=== PATIENT | male | born 1960 ===

== ENCOUNTER 2018-03-23 08:10 | Inpatient (IN) | payer BC ==
[2018-03-23] MEDS ORDERED: Sodium Chloride 0.9% 1,000 ML IV STA (08:50)
[2018-03-23] MEDS ORDERED: Morphine 4 MG/ML VIAL ONE (08:58)
[2018-03-23] MEDS ORDERED: Sodium Chloride 0.9% 1,000 ML ONE (08:59)
[2018-03-23 09:05] LABS: BASO # 0.1 K/uL (0.0-0.2); BASO % 0.7 % (0.0-2.0); EOS # 0.1 K/uL (0.0-0.7); EOS % 1.4 % (0.0-4.0); HEMOGLOBIN 14.3 g/dL (12.0-18.0); LYMPH # 1.6 K/uL (1.0-4.3); LYMPH % 18.6 % (20.0-40.0); MEAN CELL VOLUME 87.6 fL (80.0-94.0); MEAN CORPUSCULAR HEMOGLOBIN 29.8 pg (27.0-31.0); MEAN PLATELET VOLUME 8.3 fL (7.2-11.7); MONO # 0.4 K/uL (0.0-0.8); MONO % 5.2 % (0.0-10.0); NEUT # 6.4 K/uL (1.8-7.0); NEUT % 74.1 % (50.0-75.0); NRBC % 0.1 % (0.0-2.0); RBC 4.81 Mil/uL (4.40-5.90); RED CELL DISTRIBUTION WIDTH 13.7 % (11.5-14.5); WHITE BLOOD COUNT 8.6 K/uL (4.8-10.8)
[2018-03-23 09:13] LABS: INR 1.1; PROTHROMBIN TIME 11.6 SECONDS (9.7-12.2)
--- NOTE | 2018-03-23 09:30 | RAD ---
PROCEDURE: CHEST RADIOGRAPH, 1 VIEW HISTORY: SOB COMPARISON: None available. FINDINGS: LUNGS: Clear. PLEURA: No pneumothorax or pleural fluid seen. CARDIOVASCULAR: Normal. OSSEOUS STRUCTURES: No significant abnormalities. VISUALIZED UPPER ABDOMEN: Normal. OTHER FINDINGS: None. IMPRESSION: No active disease.
[2018-03-23 10:01] LABS: ALB/GLOB RATIO 1.1 (1.0-2.1); ALBUMIN 3.9 g/dL (3.5-5.0); ALT/SGPT 56 U/L (21-72); AMYLASE 73 U/L (30-110); AST/SGOT 38 U/L (17-59); BLOOD UREA NITROGEN 21 mg/dL (9-20); CALCIUM 8.6 mg/dl (8.6-10.4); GFR AFRICAN-AMERICAN > 60; GFR NON-AFRICAN AMERICAN > 60; LIPASE 109 U/L (23-300)
[2018-03-23 10:12] LABS: CK-MB 1.33 ng/mL (0.0-3.38)
[2018-03-23 11:15] LABS: URINE BILIRUBIN NEGATIVE (NEGATIVE); URINE BLOOD NEGATIVE (NEGATIVE); URINE CLARITY Clear (Clear); URINE COLOR Straw (YELLOW); URINE GLUCOSE (UA) 1+ mg/dL (Normal); URINE LEUKOCYTE ESTERASE NEG Leu/uL (Negative); URINE PROTEIN NEGATIVE (NEGATIVE); URINE UROBILINOGEN NORMAL mg/dL (0.2-1.0)
--- NOTE | 2018-03-23 11:54 | C.PDOC ---
History Of Present Illness 57-year-old male, presents to the emergency department with complaints of epigastric abdominal pain, that is associated with nausea, and non-bloody/non- bilious vomiting, that started at 05:00 this morning. Patient denies fevers, chills, shortness of breath or any other associated symptoms. No other complaints at this time. Chief Complaint (Nursing): Abdominal Pain History Per: Patient History/Exam Limitations: no limitations Past Medical History Reviewed: Historical Data, Nursing Documentation, Vital Signs Vital Signs: Last Vital Signs Temp 98.9 F 03/23/18 16:00 Pulse 71 03/23/18 16:00 Resp 20 03/23/18 16:00 BP 144/69 03/23/18 16:00 Pulse Ox 95 03/23/18 16:00 Family History: States: No Known Family Hx - Social History Hx Alcohol Use: No Hx Substance Use: No - Immunization History Hx Tetanus Toxoid Vaccination: No Hx Influenza Vaccination: No Hx Pneumococcal Vaccination: No Review Of Systems Constitutional: Negative for: Fever Cardiovascular: Negative for: Chest Pain Respiratory: Negative for: Shortness of Breath Gastrointestinal: Positive for: Nausea, Vomiting, Abdominal Pain Musculoskeletal: Negative for: Back Pain Neurological: Negative for: Weakness, Headache, Dizziness Physical Exam - Physical Exam Appears: Non-toxic, No Acute Distress, Other (uncomfortable, diaphoretic) Skin: Warm, Dry, Pale, No Rash Head: Atraumatic, Normacephalic Eye(s): bilateral: Normal Inspection Nose: Normal Oral Mucosa: Moist Lips: Normal Appearing Neck: Normal ROM Chest: Symmetrical Cardiovascular: Rhythm Regular, No Murmur Respiratory: Normal Breath Sounds, No Accessory Muscle Use Gastrointestinal/Abdominal: Soft, Tenderness ( epigastric), No Guarding, No Rebound Extremity: Normal ROM, No Deformity, No Swelling Neurological/Psych: Oriented x3, Normal Speech, Normal Cognition ED Course And Treatment - Laboratory Results Result Diagrams: 03/23/18 08:58 03/23/18 09:40 ECG Rhythm: Sinus Bradycardia, ST/T Changes Rate From EC O2 Sat by Pulse Oximetry: 100 (RA) Pulse Ox Interpretation: Normal - CT Scan/US RUQ US Other Rad Studies (CT/US): Read By Radiologist, Radiology Report Reviewed CT/US Interpretation: Accession No. : [id number]. Patient Name / ID : NENA KRAFT T / [id number]. Exam Date : 03/23/2018 11:34:51 ( Approved ). Study Comment : Sex / Age : M / 57Y. Creator : Ochoa Buckley MD. Dictator : Ochoa Buckley MD. Conveyor Line Battery Charger : Network Contractor : Ochoa Buckley MD. Approver2 : Report Date : 03/23/2018 12:02:11. My Comment : . HISTORY: upper abdominal pain. COMPARISON: None. TECHNIQUE: Sonographic evaluation of the right upper quadrant of the abdomen. FINDINGS: LIVER: Measures 18.9 cm in length. Diffusely increased echogenicity of the liver parenchyma. No mass. No biliary dilatation. Smooth contour. GALLBLADDER: Cholelithiasis. Possible adenomyomatosis, with echogenic foci demonstrated ring down artifact. No mural thickening. No pericholecystic fluid. Negative sonographic Lewis's sign. COMMON BILE DUCT: Measures 4 mm. No stones. No dilatation. PANCREAS: Unremarkable as visualized. No mass. No ductal dilatation. RIGHT KIDNEY: Measures 12.9 cm in length. Normal echogenicity. No calculus, mass, or hydronephrosis. AORTA: No aneurysmal dilatation. IVC: Unremarkable. OTHER FINDINGS: None . IMPRESSION: Cholelithiasis. Probable adenomyomatosis of the gallbladder. Fatty infiltration of the liver. Mild hepatomegaly. No biliary obstruction. No evidence of cholecystitis. Progress Note: Case was d/w who accepted patient to his service and requested for surgery consult. Case was d/w who requested to call surgery resident to evaluate this patient. Medical Decision Making Medical Decision Making: Plan: * Bloodwork * Chest X-Ray * Morphine, Protonix, IVFs, Zofran, Toradol * Reassess and Disposition Disposition - Disposition Disposition: HOSPITALIZED Disposition Time: 14:06 Condition: FAIR - Clinical Impression Clinical Impression: Epigastric pain - Scribe Statement The provider has reviewed the documentation as recorded by the Scribe (Christian Medrano) All medical record entries made by the Scribe were at my direction and personally dictated by me. I have reviewed the chart and agree that the record accurately reflects my personal performance of the history, physical exam, medical decision making, and the department course for this patient. I have also personally directed, reviewed, and agree with the discharge instructions and disposition. Decision To Admit - Pt Status Changed To: Hospital Disposition Of: Observation - . Bed Request Type: Regular Admitting Physician: Edwin Santana Patient Diagnosis: Epigastric pain
--- NOTE | 2018-03-23 12:03 | US ---
HISTORY: upper abdominal pain COMPARISON: None. TECHNIQUE: Sonographic evaluation of the right upper quadrant of the abdomen. FINDINGS: LIVER: Measures 18.9 cm in length. Diffusely increased echogenicity of the liver parenchyma. No mass. No biliary dilatation. Smooth contour. GALLBLADDER: Cholelithiasis. Possible adenomyomatosis, with echogenic foci demonstrated ring down artifact. No mural thickening. No pericholecystic fluid. Negative sonographic Lewis's sign. COMMON BILE DUCT: Measures 4 mm. No stones. No dilatation. PANCREAS: Unremarkable as visualized. No mass. No ductal dilatation. RIGHT KIDNEY: Measures 12.9 cm in length. Normal echogenicity. No calculus, mass, or hydronephrosis. AORTA: No aneurysmal dilatation. IVC: Unremarkable. OTHER FINDINGS: None . IMPRESSION: Cholelithiasis. Probable adenomyomatosis of the gallbladder. Fatty infiltration of the liver. Mild hepatomegaly. No biliary obstruction. No evidence of cholecystitis.
--- NOTE | 2018-03-23 14:49 | CP.PCM.CON ---
History of Present Illness - History of Present Illness History of Present Illness: Surgery- Dr. Ferrell 57M no significant pmhx presents to [facility] ED with sharp mid-epigastric pain radiating to the RUQ that started this morning after eating a bowl of pork fried rice. Patient never had pain like this in the past. Pain was relieved after coming to the ER and getting morphine. Pain associated with nausea, and non-bloody bilious vomiting x 2. Denies diarrhea. No associated recent sick contacts or foreign travel. Currently Denies: fevers, chills, chest pain, shortness of breath, diarrhea, changes in bowel or urinary habits, numbness/tingling in extremities PMH: cataracts PSH: eye/cataract surgery ALL: NKDA SocialHx: denies tobacco, etoh, recreational drug use FamilyHx: Non-contributory 14point review of systems negative except for those stated above Review of Systems - Review of Systems All systems: reviewed and no additional remarkable complaints except - Constitutional Constitutional: As Per HPI Past Patient History - Past Social History Smoking Status: Never Smoked - PSYCHIATRIC Hx Substance Use: No - SURGICAL HISTORY Hx Surgeries: No - ANESTHESIA Hx Anesthesia: No Meds Allergies/Adverse Reactions: Allergies Allergy/AdvReac Type Severity Reaction Status Date / Time No Known Allergies Allergy Verified 03/23/18 08:17 Physical Exam - Constitutional Appears: Non-toxic, No Acute Distress - Head Exam Head Exam: ATRAUMATIC - Eye Exam Eye Exam: EOMI - ENT Exam ENT Exam: Mucous Membranes Moist - Respiratory Exam Respiratory Exam: NORMAL BREATHING PATTERN. absent: Accessory Muscle Use, Respiratory Distress - Cardiovascular Exam Cardiovascular Exam: +S1, +S2. absent: Bradycardia, Tachycardia - GI/Abdominal Exam GI & Abdominal Exam: Soft. absent: Distended, Firm, Guarding, Hernia, Tenderness Additional comments: Rectus diasthesis noted during exam - Extremities Exam Extremities exam: Positive for: normal inspection. Negative for: calf tenderness - Back Exam Back exam: absent: CVA tenderness (L), CVA tenderness (R) - Neurological Exam Neurological exam: Alert, Oriented x3 - Psychiatric Exam Psychiatric exam: Normal Affect - Skin Skin Exam: Intact, Warm Results - Vital Signs Recent Vital Signs: Last Vital Signs Temp 98.3 F 03/23/18 12:59 Pulse 59 L 03/23/18 12:59 Resp 18 03/23/18 12:59 BP 141/60 05/15/18 12:59 Pulse Ox 100 03/23/18 14:07 - Labs Result Diagrams: 03/23/18 08:58 03/23/18 09:40 Labs: Laboratory Results - last 24 hr 03/23/18 03/23/18 03/23/18 08:58 08:58 09:40 WBC 8.6 RBC 4.81 Hgb 14.3 Hct 42.1 MCV 87.6 MCH 29.8 MCHC 34.0 RDW 13.7 Plt Count 331 MPV 8.3 Neut % (Auto) 74.1 Lymph % (Auto) 18.6 L [place] % (Auto) 5.2 Eos % (Auto) 1.4 Baso % (Auto) 0.7 Neut # (Auto) 6.4 Lymph # (Auto) 1.6 [place] # (Auto) 0.4 Eos # (Auto) 0.1 Baso # (Auto) 0.1 PT 11.6 INR 1.1 APTT 34 Sodium 143 Potassium 4.1 Chloride 107 Carbon Dioxide 25 Anion Gap 15 BUN 21 H Creatinine 0.9 Est GFR ( Amer) > 60 Est GFR (Non-Af Amer) > 60 Random Glucose 145 H Calcium 8.6 Total Bilirubin 1.0 AST 38 ALT 56 Alkaline Phosphatase 112 Total Creatine Kinase 248 H CK-MB (Mass) 1.33 Troponin I < 0.0120 Total Protein 7.3 Albumin 3.9 Globulin 3.5 Albumin/Globulin Ratio 1.1 Amylase 73 Lipase 109 Urine Color Urine Clarity Urine pH Ur Specific [place] Urine Protein Urine Glucose (UA) Urine Ketones Urine Blood Urine Nitrate Urine Bilirubin Urine Urobilinogen Ur Leukocyte Esterase Urine WBC (Auto) Urine RBC (Auto) 03/23/18 11:08 WBC RBC Hgb Hct MCV MCH MCHC RDW Plt Count MPV Neut % (Auto) Lymph % (Auto) [place] % (Auto) Eos % (Auto) Baso % (Auto) Neut # (Auto) Lymph # (Auto) [place] # (Auto) Eos # (Auto) Baso # (Auto) PT INR APTT Sodium Potassium Chloride Carbon Dioxide Anion Gap BUN Creatinine Est GFR ( Amer) Est GFR (Non-Af Amer) Random Glucose Calcium Total Bilirubin AST ALT Alkaline Phosphatase Total Creatine Kinase CK-MB (Mass) Troponin I Total Protein Albumin Globulin Albumin/Globulin Ratio Amylase Lipase Urine Color Straw Urine Clarity Clear Urine pH 8.0 Ur Specific [place] 1.015 Urine Protein Negative Urine Glucose (UA) 1+ H Urine Ketones Negative Urine Blood Negative Urine Nitrate Negative Urine Bilirubin Negative Urine Urobilinogen Normal Ur Leukocyte Esterase Neg Urine WBC (Auto) 1 Urine RBC (Auto) < 1 Assessment & Plan - Assessment and Plan (Free Text) Assessment: 57M w/ RUQ abdominal pain, symptomatic cholelithiasis Plan: - NPO after midnight - analgesia and pain control PRN - IVF - Plan for OR tomorrow for cholecystectomy - will d[facility]
[2018-03-23] MEDS ORDERED: Morphine 4 MG/ML VIAL IVP PRN (18:01)
--- NOTE | 2018-03-23 19:10 | CP.PCM.HP ---
Past Patient History - Past Social History Smoking Status: Never Smoked - PSYCHIATRIC Hx Substance Use: No - SURGICAL HISTORY Hx Surgeries: No - ANESTHESIA Hx Anesthesia: No Meds Allergies/Adverse Reactions: Allergies Allergy/AdvReac Type Severity Reaction Status Date / Time No Known Allergies Allergy Verified 03/23/18 08:17 Physical Exam - Constitutional Appears: Well - Head Exam Head Exam: ATRAUMATIC, NORMAL INSPECTION, NORMOCEPHALIC - Eye Exam Eye Exam: EOMI, Normal appearance, PERRL Pupil Exam: NORMAL ACCOMODATION, PERRL - ENT Exam ENT Exam: Mucous Membranes Moist, Normal Exam - Neck Exam Neck exam: Positive for: Normal Inspection - Respiratory Exam Respiratory Exam: Decreased Breath Sounds - Cardiovascular Exam Cardiovascular Exam: REGULAR RHYTHM, +S1, +S2 - GI/Abdominal Exam GI & Abdominal Exam: Diminished Bowel Sounds, Soft - Rectal Exam Rectal Exam: Deferred Results - Vital Signs Recent Vital Signs: Last Vital Signs Temp 98.9 F 03/23/18 16:00 Pulse 71 03/23/18 16:00 Resp 20 03/23/18 16:00 BP 144/69 03/23/18 16:00 Pulse Ox 100 03/23/18 18:31 - Labs Result Diagrams: 03/23/18 08:58 03/23/18 09:40 Labs: Laboratory Results - last 24 hr 03/23/18 03/23/18 03/23/18 08:58 08:58 09:40 WBC 8.6 RBC 4.81 Hgb 14.3 Hct 42.1 MCV 87.6 MCH 29.8 MCHC 34.0 RDW 13.7 Plt Count 331 MPV 8.3 Neut % (Auto) 74.1 Lymph % (Auto) 18.6 L [place] % (Auto) 5.2 Eos % (Auto) 1.4 Baso % (Auto) 0.7 Neut # (Auto) 6.4 Lymph # (Auto) 1.6 [place] # (Auto) 0.4 Eos # (Auto) 0.1 Baso # (Auto) 0.1 PT 11.6 INR 1.1 APTT 34 Sodium 143 Potassium 4.1 Chloride 107 Carbon Dioxide 25 Anion Gap 15 BUN 21 H Creatinine 0.9 Est GFR ( Amer) > 60 Est GFR (Non-Af Amer) > 60 Random Glucose 145 H Calcium 8.6 Total Bilirubin 1.0 AST 38 ALT 56 Alkaline Phosphatase 112 Total Creatine Kinase 248 H CK-MB (Mass) 1.33 Troponin I < 0.0120 Total Protein 7.3 Albumin 3.9 Globulin 3.5 Albumin/Globulin Ratio 1.1 Amylase 73 Lipase 109 Urine Color Urine Clarity Urine pH Ur Specific [place] Urine Protein Urine Glucose (UA) Urine Ketones Urine Blood Urine Nitrate Urine Bilirubin Urine Urobilinogen Ur Leukocyte Esterase Urine WBC (Auto) Urine RBC (Auto) 03/23/18 11:08 WBC RBC Hgb Hct MCV MCH MCHC RDW Plt Count MPV Neut % (Auto) Lymph % (Auto) [place] % (Auto) Eos % (Auto) Baso % (Auto) Neut # (Auto) Lymph # (Auto) [place] # (Auto) Eos # (Auto) Baso # (Auto) PT INR APTT Sodium Potassium Chloride Carbon Dioxide Anion Gap BUN Creatinine Est GFR ( Amer) Est GFR (Non-Af Amer) Random Glucose Calcium Total Bilirubin AST ALT Alkaline Phosphatase Total Creatine Kinase CK-MB (Mass) Troponin I Total Protein Albumin Globulin Albumin/Globulin Ratio Amylase Lipase Urine Color Straw Urine Clarity Clear Urine pH 8.0 Ur Specific [place] 1.015 Urine Protein Negative Urine Glucose (UA) 1+ H Urine Ketones Negative Urine Blood Negative Urine Nitrate Negative Urine Bilirubin Negative Urine Urobilinogen Normal Ur Leukocyte Esterase Neg Urine WBC (Auto) 1 Urine RBC (Auto) < 1
[2018-03-24] MEDS: Lactated Ringer's 1,000 ML IV SCH ×3 (00:05→20:05)
[2018-03-24 08:19] LABS: BASO % 0.2 % (0.0-2.0); EOS % 0.2 % (0.0-4.0); HEMOGLOBIN 12.9 g/dL (12.0-18.0); LYMPH % 13.6 % (20.0-40.0); MEAN CELL VOLUME 86.7 fL (80.0-94.0); MEAN CORPUSCULAR HEMOGLOBIN 29.3 pg (27.0-31.0); MEAN CORPUSCULAR HGB CONC 33.9 g/dL (33.0-37.0); MEAN PLATELET VOLUME 7.9 fL (7.2-11.7); MONO # 1.1 K/uL (0.0-0.8); MONO % 7.8 % (0.0-10.0); NEUT # 11.3 K/uL (1.8-7.0); NEUT % 78.2 % (50.0-75.0); RBC 4.39 Mil/uL (4.40-5.90); RED CELL DISTRIBUTION WIDTH 13.4 % (11.5-14.5)
[2018-03-24 08:22] LABS: WHITE BLOOD COUNT 14.4 K/uL (4.8-10.8)
[2018-03-24 08:28] LABS: BLOOD UREA NITROGEN 17 mg/dL (9-20); CALCIUM 8.9 mg/dl (8.6-10.4); GFR AFRICAN-AMERICAN > 60; GFR NON-AFRICAN AMERICAN > 60
--- NOTE | 2018-03-24 12:38 | CP.PCM.PN ---
Subjective - Date & Time of Evaluation Date of Evaluation: 03/24/18 Time of Evaluation: 07:20 - Subjective Subjective: clinically same Objective - Vital Signs/Intake and Output Vital Signs (last 24 hours): Temp Pulse Resp BP Pulse Ox 99.3 F 69 20 122/54 L 96 03/24/18 07:36 03/24/18 07:36 03/24/18 07:36 03/24/18 07:36 03/24/18 07:36 Intake and Output: 03/24/18 03/24/18 06:59 18:59 Intake Total 700 Balance 700 - Medications Medications: Current Medications Acetaminophen (Tylenol 325mg Tab) 650 mg PO Q6 PRN PRN Reason: Fever >100.4 F Lactated Ringer's (Lactated Ringer's) 1,000 mls @ 100 mls/hr IV .Q10H MARCEL Last Admin: 03/24/18 10:12 Dose: 100 mls/hr Ketorolac Tromethamine (Toradol) 15 mg IVP Q8 PRN PRN Reason: Pain, Mild (1-3) Morphine Sulfate (Morphine) 2 mg IVP Q4 PRN PRN Reason: Pain, moderate (4-7) Last Admin: 03/23/18 22:18 Dose: 2 mg Ondansetron HCl (Zofran Inj) 4 mg IVP Q4 PRN PRN Reason: Nausea/Vomiting - Labs Labs: 03/24/18 07:34 03/24/18 07:34 PT 11.6 SECONDS (9.7-12.2) 03/23/18 08:58 INR 1.1 03/23/18 08:58 APTT 34 SECONDS (21-34) 03/23/18 08:58 - Constitutional Appears: Well - Head Exam Head Exam: ATRAUMATIC, NORMAL INSPECTION, NORMOCEPHALIC - Eye Exam Eye Exam: EOMI, Normal appearance, PERRL Pupil Exam: NORMAL ACCOMODATION, PERRL - ENT Exam ENT Exam: Mucous Membranes Moist, Normal Exam - Neck Exam Neck Exam: Full ROM, Normal Inspection. absent: Lymphadenopathy - Respiratory Exam Respiratory Exam: Decreased Breath Sounds - Cardiovascular Exam Cardiovascular Exam: REGULAR RHYTHM, +S1, +S2 - GI/Abdominal Exam GI & Abdominal Exam: Soft, Diminished Bowel Sounds - Rectal Exam Rectal Exam: Deferred Assessment and Plan (1) Epigastric pain Status: Acute - Assessment and Plan (Free Text) Plan: Symptomatic Cholelithiasis Admit to med/surg RUQ US (03/24/18): Cholelithiasis. Probable adenomyomatosis of the gallbladder. Fatty infiltration of the liver. Mild hepatomegaly. No biliary obstruction. No evidence of cholecystitis. Dr. Ferrell, Gen in home sales consultant - NPO this AM - Cholecystectomy today @ 2pm Toradol 15mg IV Q8 PRN for mild pain Morphine 2mg IV Q4H PRN for moderate pain LR @ 100cc/hr Zofran 4mg IV Q4H PRN Prophylaxis SCDs GI not indicated VTE will restart per surgery Disposition: Cholecystectomy today with Dr. Ferrell.
[2018-03-24] MEDS ORDERED: ceFAZolin 1 gm in NS 1 GM/100 ML BAG IVPB ONE (13:51)
[2018-03-24] MEDS ORDERED: Midazolam 2 MG/2 ML VIAL ONE (15:37)
[2018-03-24] MEDS ORDERED: Propofol 10 mg/ml Inj (20 ML) ONE ×2 (15:37→17:05)
--- NOTE | 2018-03-24 15:47 | CP.PCM.PN ---
<ChandrikaSrinivas ding - Last Filed: 03/24/18 15:36> Subjective - Date & Time of Evaluation Date of Evaluation: 03/24/18 Time of Evaluation: 15:36 - Subjective Subjective: PGY-[address] Santana's service: Pt seen and examined at bedside. Nursing reports no acute events overnight. Patient found lying comfortably in bed. Denies any abdominal pain, N/V this morning. Pt NPO for OR this afternoon with Dr. Ferrell. Objective - Vital Signs/Intake and Output Vital Signs (last 24 hours): Temp Pulse Resp BP Pulse Ox 99.3 F 69 20 122/54 L 96 03/24/18 07:36 03/24/18 07:36 03/24/18 07:36 03/24/18 07:36 03/24/18 07:36 Intake and Output: 03/24/18 03/24/18 06:59 18:59 Intake Total 700 800 Balance 700 800 - Medications Medications: Current Medications Acetaminophen (Tylenol 325mg Tab) 650 mg PO Q6 PRN PRN Reason: Fever >100.4 F Lactated Ringer's (Lactated Ringer's) 1,000 mls @ 100 mls/hr IV .Q10H MARCEL Last Admin: 03/24/18 10:12 Dose: 100 mls/hr Ketorolac Tromethamine (Toradol) 15 mg IVP Q8 PRN PRN Reason: Pain, Mild (1-3) Morphine Sulfate (Morphine) 2 mg IVP Q4 PRN PRN Reason: Pain, moderate (4-7) Last Admin: 03/23/18 22:18 Dose: 2 mg Ondansetron HCl (Zofran Inj) 4 mg IVP Q4 PRN PRN Reason: Nausea/Vomiting - Labs Labs: 03/24/18 07:34 03/24/18 07:34 PT 11.6 SECONDS (9.7-12.2) 03/23/18 08:58 INR 1.1 03/23/18 08:58 APTT 34 SECONDS (21-34) 03/23/18 08:58 - Constitutional Appears: Non-toxic, No Acute Distress - Head Exam Head Exam: ATRAUMATIC, NORMAL INSPECTION - Eye Exam Eye Exam: EOMI. absent: Scleral icterus Pupil Exam: PERRL - ENT Exam ENT Exam: Mucous Membranes Moist - Neck Exam Neck Exam: Full ROM - Respiratory Exam Respiratory Exam: Clear to Ausculation Bilateral, NORMAL BREATHING PATTERN - Cardiovascular Exam Cardiovascular Exam: REGULAR RHYTHM, +S1, +S2 - GI/Abdominal Exam GI & Abdominal Exam: Soft, Normal Bowel Sounds. absent: Tenderness - Extremities Exam Extremities Exam: Normal Inspection. absent: Pedal Edema, Tenderness - Back Exam Back Exam: absent: CVA tenderness (L), CVA tenderness (R) - Neurological Exam Neurological Exam: Alert, Awake, Oriented x3 - Psychiatric Exam Psychiatric exam: Normal Affect, Normal Mood - Skin Skin Exam: Normal Color, Warm Assessment and Plan - Assessment and Plan (Free Text) Plan: Symptomatic Cholelithiasis Admit to med/surg RU US (03/24/18): Cholelithiasis. Probable adenomyomatosis of the gallbladder. Fatty infiltration of the liver. Mild hepatomegaly. No biliary obstruction. No evidence of cholecystitis. Dr. Ferrell, Gen data power consultant - NPO this AM - Cholecystectomy today @ 2pm Toradol 15mg IV Q8 PRN for mild pain Morphine 2mg IV Q4H PRN for moderate pain LR @ 100cc/hr Zofran 4mg IV Q4H PRN Prophylaxis SCDs GI not indicated VTE will restart per surgery Disposition: Cholecystectomy today with Dr. Ferrell. Srinivas Cobos PGY-2 All medical management per Dr. Santana <Edwin Santana S - Last Filed: 03/24/18 20:40> Objective - Vital Signs/Intake and Output Vital Signs (last 24 hours): Temp Pulse Resp BP Pulse Ox 99.2 F 68 20 141/81 95 03/24/18 19:02 03/24/18 19:02 03/24/18 19:02 03/24/18 19:02 03/24/18 19:02 Intake and Output: 03/24/18 03/25/18 18:59 06:59 Intake Total 1050 Balance 1050 - Medications Medications: Current Medications Acetaminophen (Tylenol 325mg Tab) 650 mg PO Q6 PRN PRN Reason: Fever >100.4 F Docusate Sodium (Colace) 100 mg PO BID [facility] Last Admin: 03/24/18 19:26 Dose: 100 mg Lactated Ringer's (Lactated Ringer's) 1,000 mls @ 100 mls/hr IV .Q10H [facility] Last Admin: 03/24/18 10:12 Dose: 100 mls/hr Ciprofloxacin (Cipro 400mg/200ml Dsw) 400 mg in 200 mls @ 133 mls/hr IVPB Q12 MARCEL PRN Reason: Protocol Metronidazole (Flagyl) 500 mg in 100 mls @ 100 mls/hr IVPB Q8 MARCEL PRN Reason: Protocol Ketorolac Tromethamine (Toradol) 15 mg IVP Q8 PRN PRN Reason: Pain, Mild (1-3) Morphine Sulfate (Morphine) 2 mg IVP Q4 PRN PRN Reason: Pain, severe (8-10) Ondansetron HCl (Zofran Inj) 4 mg IVP Q4 PRN PRN Reason: Nausea/Vomiting Oxycodone/Acetaminophen (Percocet 5/325 Mg Tab) 1 tab PO Q4H PRN PRN Reason: Pain, moderate (4-7) Stop: 03/27/18 17:47 Last Admin: 03/24/18 20:00 Dose: 1 tab Oxycodone/Acetaminophen (Percocet 5/325 Mg Tab) 2 tab PO Q4H PRN PRN Reason: Pain, severe (8-10) Stop: 03/27/18 17:47 Pneumococcal Polyvalent Vaccine (Pneumovax 23 Vaccine) 0.5 ml IM .ONCE ONE Stop: 03/26/18 10:01 - Labs Labs: 03/24/18 07:34 03/24/18 07:34 PT 11.6 SECONDS (9.7-12.2) 03/23/18 08:58 INR 1.1 03/23/18 08:58 APTT 34 SECONDS (21-34) 03/23/18 08:58 Assessment and Plan (1) Epigastric pain Status: Acute
[2018-03-24] MEDS ORDERED: Rocuronium 10 mg/ml (10 ml) ONE (15:59)
[2018-03-24] MEDS ORDERED: Neostigmine Methylsulfate 3mg/3ml Syringe IV ONE (16:31)
--- NOTE | 2018-03-24 17:45 | PCM.SURG1 ---
Surgeon's Initial Post Op Note - Surgeon's Notes Surgeon: Dr. Ferrell Mold Burner: Dr. Pike PGY3 Type of Anesthesia: General Endo Pre-Operative Diagnosis: acute cholecystitis Operative Findings: acutely inflammed gallbladder Post-Operative Diagnosis: same Operation Performed: laparoscopic cholecystectomy Specimen/Specimens Removed: gallbladder Estimated Blood Loss: EBL {In ML}: 20 Blood Products Given: N/A Drains Used: No Drains Post-Op Condition: Good Date of Surgery/Procedure: 03/24/18 Time of Surgery/Procedure: 17:45
[2018-03-24] MEDS ORDERED: Oxycodone/Acetaminophen 5/325 mg Tab PO PRN ×2 (17:46)
[2018-03-24] MEDS ORDERED: HYDROmorphone 0.5 mg/0.5 ml ISec IVP PRN (17:46)
[2018-03-24] MEDS ORDERED: Morphine 4 MG/ML VIAL IVP PRN (17:47)
[2018-03-24] MEDS ORDERED: Lactated Ringer's 1,000 ML IV ONE (18:50)
[2018-03-24] MEDS: metroNIDAZOLE IV 500 mg/100 ml 500 MG/100 ML BAG IVPB SCH (21:26)
[2018-03-24] MEDS: Ciprofloxacin 400mg/200ml D5W 400 MG/200 ML BAG IVPB SCH (22:31)
[2018-03-25] MEDS: metroNIDAZOLE IV 500 mg/100 ml 500 MG/100 ML BAG IVPB SCH ×2 (05:30→14:42)
[2018-03-25 07:45] LABS: BASO % 0.1 % (0.0-2.0); HEMOGLOBIN 13.1 g/dL (12.0-18.0); LYMPH % 8.4 % (20.0-40.0); MEAN CORPUSCULAR HEMOGLOBIN 30.2 pg (27.0-31.0); MEAN CORPUSCULAR HGB CONC 34.7 g/dL (33.0-37.0); MEAN PLATELET VOLUME 8.1 fL (7.2-11.7); MONO % 8.7 % (0.0-10.0); NEUT # 9.8 K/uL (1.8-7.0); NEUT % 82.8 % (50.0-75.0); PLATELET COUNT 310 K/uL (130-400); RBC 4.36 Mil/uL (4.40-5.90); RED CELL DISTRIBUTION WIDTH 13.5 % (11.5-14.5); WHITE BLOOD COUNT 11.8 K/uL (4.8-10.8)
[2018-03-25 07:56] LABS: ALB/GLOB RATIO 1.1 (1.0-2.1); ALBUMIN 3.8 g/dL (3.5-5.0); ALT/SGPT 346 U/L (21-72); AST/SGOT 353 U/L (17-59); BLOOD UREA NITROGEN 18 mg/dL (9-20); CALCIUM 8.6 mg/dl (8.6-10.4); GFR AFRICAN-AMERICAN > 60; GFR NON-AFRICAN AMERICAN > 60
--- NOTE | 2018-03-25 08:25 | CP.PCM.PN ---
Subjective - Date & Time of Evaluation Date of Evaluation: 03/25/18 Time of Evaluation: 08:23 - Subjective Subjective: Surgery: Dr. Ferrell Patient reports feeling much better. Tolerating diet. No f/c/n/v. Voiding freely. Objective - Vital Signs/Intake and Output Vital Signs (last 24 hours): Temp Pulse Resp BP Pulse Ox 98.4 F 80 18 132/74 93 L 03/25/18 07:58 03/25/18 07:58 03/25/18 07:58 03/25/18 07:58 03/25/18 07:58 Intake and Output: 03/25/18 03/25/18 06:59 18:59 Intake Total 2500 Output Total 500 Balance 2000 - Medications Medications: Current Medications Acetaminophen (Tylenol 325mg Tab) 650 mg PO Q6 PRN PRN Reason: Fever >100.4 F Docusate Sodium (Colace) 100 mg PO BID [facility]CR[facility] Last Admin: 03/24/18 19:26 Dose: 100 mg Ciprofloxacin (Cipro 400mg/200ml Dsw) 400 mg in 200 mls @ 133 mls/hr IVPB Q12 MARCEL PRN Reason: Protocol Last Admin: 03/24/18 22:31 Dose: 133 mls/hr Metronidazole (Flagyl) 500 mg in 100 mls @ 100 mls/hr IVPB Q8 MARCEL PRN Reason: Protocol Last Admin: 03/25/18 05:30 Dose: 100 mls/hr Ketorolac Tromethamine (Toradol) 15 mg IVP Q8 PRN PRN Reason: Pain, Mild (1-3) Morphine Sulfate (Morphine) 2 mg IVP Q4 PRN PRN Reason: Pain, severe (8-10) Ondansetron HCl (Zofran Inj) 4 mg IVP Q4 PRN PRN Reason: Nausea/Vomiting Oxycodone/Acetaminophen (Percocet 5/325 Mg Tab) 1 tab PO Q4H PRN PRN Reason: Pain, moderate (4-7) Stop: 03/27/18 17:47 Last Admin: 03/24/18 20:00 Dose: 1 tab Oxycodone/Acetaminophen (Percocet 5/325 Mg Tab) 2 tab PO Q4H PRN PRN Reason: Pain, severe (8-10) Stop: 03/27/18 17:47 Pneumococcal Polyvalent Vaccine (Pneumovax 23 Vaccine) 0.5 ml IM .ONCE ONE Stop: 03/26/18 10:01 - Labs Labs: 03/25/18 07:36 03/25/18 07:36 PT 11.6 SECONDS (9.7-12.2) 03/23/18 08:58 INR 1.1 03/23/18 08:58 APTT 34 SECONDS (21-34) 03/23/18 08:58 - Constitutional Appears: Non-toxic, No Acute Distress - Head Exam Head Exam: ATRAUMATIC, NORMOCEPHALIC - Eye Exam Eye Exam: EOMI, Normal appearance - ENT Exam ENT Exam: Mucous Membranes Moist - Respiratory Exam Respiratory Exam: NORMAL BREATHING PATTERN. absent: Respiratory Distress - Cardiovascular Exam Cardiovascular Exam: REGULAR RHYTHM. absent: Tachycardia - GI/Abdominal Exam GI & Abdominal Exam: Soft. absent: Distended, Guarding, Rigid, Tenderness, Rebound Additional comments: dressing CDI - Neurological Exam Neurological Exam: Alert, Awake - Psychiatric Exam Psychiatric exam: Normal Affect, Normal Mood - Skin Skin Exam: Dry, Normal Color, Warm Assessment and Plan - Assessment and Plan (Free Text) Assessment: 57 y/o male s/p lap dontrell POD1 w/ transaminitis Plan: -transaminitis could just be post op elevation however will check HIDA scan for possible leak -recommend 1 more day IV abx and recheck of CMP -OOB -IS -ok for diet -DVT ppx -further recs per DR. Ferrell [facility] [place] PGY3
[2018-03-25 10:02] LABS: BANDS 1 % (0-2); LYMPHOCYTE 8 % (20-40); MONOCYTE 7 % (0-10); NEUTROPHIL 83 % (50-75); PLATELET ESTIMATE NORMAL (NORMAL); REACTIVE LYMPHOCYTES 1 % (0-0); TOTAL CELLS COUNTED 100
[2018-03-25] MEDS: Ciprofloxacin 400mg/200ml D5W 400 MG/200 ML BAG IVPB SCH (10:30)
--- NOTE | 2018-03-25 15:28 | CP.PCM.PN ---
Subjective - Date & Time of Evaluation Date of Evaluation: 03/25/18 Time of Evaluation: 07:00 - Subjective Subjective: clinically same Objective - Vital Signs/Intake and Output Vital Signs (last 24 hours): Temp Pulse Resp BP Pulse Ox 98.4 F 80 18 132/74 93 L 03/25/18 07:58 03/25/18 07:58 03/25/18 07:58 03/25/18 07:58 03/25/18 07:58 Intake and Output: 03/25/18 03/25/18 06:59 18:59 Intake Total 2500 1280 Output Total 500 Balance 2000 1280 - Medications Medications: Current Medications Acetaminophen (Tylenol 325mg Tab) 650 mg PO Q6 PRN PRN Reason: Fever >100.4 F Docusate Sodium (Colace) 100 mg PO BID MARCEL Last Admin: 03/25/18 10:30 Dose: 100 mg Ciprofloxacin (Cipro 400mg/200ml Dsw) 400 mg in 200 mls @ 133 mls/hr IVPB Q12 MARCEL PRN Reason: Protocol Last Admin: 03/25/18 10:30 Dose: 133 mls/hr Metronidazole (Flagyl) 500 mg in 100 mls @ 100 mls/hr IVPB Q8 MARCEL PRN Reason: Protocol Last Admin: 03/25/18 14:42 Dose: 100 mls/hr Ketorolac Tromethamine (Toradol) 15 mg IVP Q8 PRN PRN Reason: Pain, Mild (1-3) Ondansetron HCl (Zofran Inj) 4 mg IVP Q4 PRN PRN Reason: Nausea/Vomiting Oxycodone/Acetaminophen (Percocet 5/325 Mg Tab) 1 tab PO Q4H PRN PRN Reason: Pain, moderate (4-7) Stop: 03/27/18 17:47 Last Admin: 03/24/18 20:00 Dose: 1 tab Oxycodone/Acetaminophen (Percocet 5/325 Mg Tab) 2 tab PO Q4H PRN PRN Reason: Pain, severe (8-10) Stop: 03/27/18 17:47 Pneumococcal Polyvalent Vaccine (Pneumovax 23 Vaccine) 0.5 ml IM .ONCE ONE Stop: 03/26/18 10:01 - Labs Labs: 03/25/18 07:36 05/17/18 07:36 PT 11.6 SECONDS (9.7-12.2) 03/23/18 08:58 INR 1.1 03/23/18 08:58 APTT 34 SECONDS (21-34) 03/23/18 08:58 - Constitutional Appears: Well - Head Exam Head Exam: ATRAUMATIC, NORMAL INSPECTION, NORMOCEPHALIC - Eye Exam Eye Exam: EOMI, Normal appearance, PERRL Pupil Exam: NORMAL ACCOMODATION, PERRL - ENT Exam ENT Exam: Mucous Membranes Moist, Normal Exam - Neck Exam Neck Exam: Full ROM, Normal Inspection. absent: Lymphadenopathy - Respiratory Exam Respiratory Exam: Decreased Breath Sounds - Cardiovascular Exam Cardiovascular Exam: REGULAR RHYTHM, +S1, +S2 - GI/Abdominal Exam GI & Abdominal Exam: Soft, Diminished Bowel Sounds - Rectal Exam Rectal Exam: Deferred Assessment and Plan (1) Epigastric pain Status: Acute
--- NOTE | 2018-03-25 16:27 | NM ---
PROCEDURE: Nuclear Medicine Hepatobiliary Scan HISTORY: post dontrell w/ elevated liver enzymes COMPARISON: None available. TECHNIQUE: 5.6 mCi of technetium 99m Mebrofenin was administered intravenously. Planar images of the abdomen were obtained at 5 min intervals to 60 mins. Delayed images were also obtained of 6 hours post isotope administration. FINDINGS: LIVER: Timely and homogenous uptake. COMMON BILE DUCT: Not identified. GALLBLADDER: Patient is apparently status post cholecystectomy. SMALL BOWEL: Not identified. IMPRESSION: Findings compatible with obstruction of the common hepatic or proximal common bile duct or hepatic biliary stasis. Further clinical correlation recommended. Findings discussed with Nurse Tam at [address] [place] [address] with written down and read back verification 03/25/2018 4:10 p.m..
--- NOTE | 2018-03-25 17:18 | CP.PCM.PN ---
Subjective - Date & Time of Evaluation Date of Evaluation: 03/25/18 Time of Evaluation: 10:15 - Subjective Subjective: Progress Note for Dr. Santana Patient seen and examined at bedside. Patient had a fever of 100.4 late yesterday evening. Patient was resting in bed comfortably in bed at the time of examination. Patient complains of discomfort at the incision site. Denies having headache, shortness of breath, chest pain, nausea, vomiting or urinary symptoms. Objective - Vital Signs/Intake and Output Vital Signs (last 24 hours): Temp Pulse Resp BP Pulse Ox 98.4 F 80 18 132/74 93 L 03/25/18 07:58 03/25/18 07:58 03/25/18 07:58 03/25/18 07:58 03/25/18 07:58 Intake and Output: 03/25/18 03/25/18 06:59 18:59 Intake Total 2500 1280 Output Total 500 Balance 2000 1280 - Medications Medications: Current Medications Acetaminophen (Tylenol 325mg Tab) 650 mg PO Q6 PRN PRN Reason: Fever >100.4 F Docusate Sodium (Colace) 100 mg PO BID [facility] Last Admin: 03/25/18 10:30 Dose: 100 mg Ciprofloxacin (Cipro 400mg/200ml Dsw) 400 mg in 200 mls @ 133 mls/hr IVPB Q12 MARCEL PRN Reason: Protocol Last Admin: 03/25/18 10:30 Dose: 133 mls/hr Metronidazole (Flagyl) 500 mg in 100 mls @ 100 mls/hr IVPB Q8 MARCEL PRN Reason: Protocol Last Admin: 03/25/18 14:42 Dose: 100 mls/hr Ketorolac Tromethamine (Toradol) 15 mg IVP Q8 PRN PRN Reason: Pain, Mild (1-3) Ondansetron HCl (Zofran Inj) 4 mg IVP Q4 PRN PRN Reason: Nausea/Vomiting Oxycodone/Acetaminophen (Percocet 5/325 Mg Tab) 1 tab PO Q4H PRN PRN Reason: Pain, moderate (4-7) Stop: 03/27/18 17:47 Last Admin: 03/24/18 20:00 Dose: 1 tab Oxycodone/Acetaminophen (Percocet 5/325 Mg Tab) 2 tab PO Q4H PRN PRN Reason: Pain, severe (8-10) Stop: 03/27/18 17:47 Pneumococcal Polyvalent Vaccine (Pneumovax 23 Vaccine) 0.5 ml IM .ONCE ONE Stop: 03/26/18 10:01 - Labs Labs: 03/25/18 07:36 03/25/18 07:36 PT 11.6 SECONDS (9.7-12.2) 03/23/18 08:58 INR 1.1 03/23/18 08:58 APTT 34 SECONDS (21-34) 03/23/18 08:58 - Additional Findings Additional findings: - Constitutional Appears: Non-toxic, No Acute Distress - Head Exam Head Exam: ATRAUMATIC, NORMAL INSPECTION - Eye Exam Eye Exam: EOMI. absent: Scleral icterus Pupil Exam: PERRL - ENT Exam ENT Exam: Mucous Membranes Moist - Neck Exam Neck Exam: Full ROM - Respiratory Exam Respiratory Exam: Clear to Ausculation Bilateral, NORMAL BREATHING PATTERN - Cardiovascular Exam Cardiovascular Exam: REGULAR RHYTHM, +S1, +S2 - GI/Abdominal Exam GI & Abdominal Exam: Soft, Normal Bowel Sounds. Surgical site dressing dry, clean and intact, no active drainage or bleeding - Extremities Exam Extremities Exam: Normal Inspection. absent: Pedal Edema, Tenderness - Back Exam Back Exam: absent: CVA tenderness (L), CVA tenderness (R) - Neurological Exam Neurological Exam: Alert, Awake, Oriented x3 - Psychiatric Exam Psychiatric exam: Normal Affect, Normal Mood - Skin Skin Exam: Normal Color, Warm Assessment and Plan - Assessment and Plan (Free Text) Assessment: Cholelithiasis S/p laparoscopic cholecystectomy POD #1 Admit to med/surg RUQ US (03/24/18): Cholelithiasis. Probable adenomyomatosis of the gallbladder. Fatty infiltration of the liver. Mild hepatomegaly. No biliary obstruction. No evidence of cholecystitis. Dr. Ferrell, Gen databases computer consultant - heart healthy diet - Percocet for pain Toradol 15mg IV Q8 PRN for mild pain Morphine 2mg IV Q4H PRN for moderate pain LR @ 100cc/hr Zofran 4mg IV Q4H PRN Transaminitis AST/ALT: 353/346 HIDA scan shows obstruction of the common hepatic or proximal common bile duct or hepatic biliary stasis Follow up CMP, MRCP Prophylaxis SCDs GI not indicated Case discussed with Dr. Santana All management per Dr. Santana
[2018-03-25 17:23] LABS: ALB/GLOB RATIO 1.1 (1.0-2.1); ALT/SGPT 468 U/L (21-72); AST/SGOT 395 U/L (17-59); BLOOD UREA NITROGEN 18 mg/dL (9-20); CALCIUM 9.1 mg/dl (8.6-10.4); GFR AFRICAN-AMERICAN > 60; GFR NON-AFRICAN AMERICAN > 60
[2018-03-25] MEDS: Lactated Ringer's 1,000 ML IV SCH (17:59)
[2018-03-26] MEDS: Lactated Ringer's 1,000 ML IV SCH ×2 (01:00→09:28)
[2018-03-26 01:45] VITALS: RESP 20
--- NOTE | 2018-03-26 02:06 | OP ---
PROCEDURE DATE: 03/24/2018 SURGEON: Elisa Ferrell MD SMALL MACHINE BINDERY OPERATOR: Dr. Pike. ANESTHESIA: General. PREOPERATIVE DIAGNOSIS: Acute cholecystitis. POSTOPERATIVE DIAGNOSIS: Acute cholecystitis. PROCEDURE: Laparoscopic cholecystectomy. DESCRIPTION OF OPERATION: With the patient in the supine position under adequate general anesthesia, the abdomen was prepped and draped in the usual sterile manner. Veress needle puncture was performed at the umbilicus with insufflation to 15 cm of water pressure of CO2 and a 10-mm laparoscopic trocar was inserted via an infraumbilical incision. Under direct vision, additional trocars were inserted in the epigastrium and right costal margin. The gallbladder was visualized. It appeared distended and acutely inflamed with an edematous wall and possibly small patches of early impending gangrene. The gallbladder was aspirated of some particulate hemorrhagic bile, allowing the fundus to be grasped and elevated. The infundibulum was identified and grasped and retracted laterally. The infundibulum was noted to be tortuous and curled medially, and the cystic duct was identified and carefully cleared to identify its junction with the gallbladder. The cystic duct was cleared and then viewed anteriorly and posteriorly as a view of safety. The cystic duct was then triply clipped and divided. The cystic artery was identified and anterior and posterior branches were dissected and then triply clipped and divided, and the gallbladder was dissected free of the liver bed using electrocautery. The liver bed was edematous, consistent with the acute cholecystitis. The liver bed was inspected for hemostasis, and the dissection was completed. The gallbladder was placed in a specimen retrieval bag and removed via the umbilical port site. It was noted to contain sludge as well as at least two moderately sized stones. The right upper quadrant was irrigated and suctioned. The pneumoperitoneum was released and the trocars removed. The umbilical port site was closed with a [id number] fascial suture of 0 Vicryl. All incisions were closed with 4-0 Monocryl subcuticular sutures and Steri-Strips. Dry sterile dressings were applied. The patient tolerated the procedure well and transferred to the recovery room in stable condition. Estimated blood loss for the procedure was 20 mL. Elisa Ferrell MD
[2018-03-26 07:37] VITALS: O2SAT 95
[2018-03-26 08:21] LABS: BASO % 0.6 % (0.0-2.0); EOS # 0.1 K/uL (0.0-0.7); EOS % 1.5 % (0.0-4.0); HEMOGLOBIN 13.3 g/dL (12.0-18.0); LYMPH # 1.3 K/uL (1.0-4.3); LYMPH % 18.8 % (20.0-40.0); MEAN CELL VOLUME 88.1 fL (80.0-94.0); MEAN CORPUSCULAR HEMOGLOBIN 30.6 pg (27.0-31.0); MEAN CORPUSCULAR HGB CONC 34.7 g/dL (33.0-37.0); MEAN PLATELET VOLUME 8.3 fL (7.2-11.7); MONO # 0.7 K/uL (0.0-0.8); MONO % 10.4 % (0.0-10.0); NEUT # 4.8 K/uL (1.8-7.0); NEUT % 68.7 % (50.0-75.0); RBC 4.35 Mil/uL (4.40-5.90); RED CELL DISTRIBUTION WIDTH 13.7 % (11.5-14.5); WHITE BLOOD COUNT 6.9 K/uL (4.8-10.8)
[2018-03-26 08:41] LABS: ALBUMIN 3.6 g/dL (3.5-5.0); ALT/SGPT 456 U/L (21-72); AST/SGOT 268 U/L (17-59); BLOOD UREA NITROGEN 15 mg/dL (9-20); CALCIUM 8.4 mg/dl (8.6-10.4); GFR AFRICAN-AMERICAN > 60; GFR NON-AFRICAN AMERICAN > 60
--- NOTE | 2018-03-26 08:42 | CP.PCM.PN ---
Subjective - Date & Time of Evaluation Date of Evaluation: 03/26/18 Time of Evaluation: 08:39 - Subjective Subjective: PGY-[address] Santana's service: Patient seen and examined at bedside. Nursing reports pt afebrile overnight. Patient found lying in bed comfortably. He admits only slight discomfort around the surgical port sites but denies true abdominal pain. Denies subjective fever , chills, nausea, vomiting overnight. Pt NPO for MRCP today. Objective - Vital Signs/Intake and Output Vital Signs (last 24 hours): Temp Pulse Resp BP Pulse Ox 97.8 F 72 20 126/76 95 03/26/18 07:00 03/26/18 07:00 03/26/18 07:00 03/26/18 07:00 03/26/18 07:00 Intake and Output: 03/26/18 03/26/18 06:59 18:59 Intake Total 1900 Output Total 1251 Balance 649 - Medications Medications: Current Medications Acetaminophen (Tylenol 325mg Tab) 650 mg PO Q6 PRN PRN Reason: Fever >100.4 F Docusate Sodium (Colace) 100 mg PO BID [facility] Last Admin: 03/25/18 17:59 Dose: 100 mg Lactated Ringer's (Lactated Ringer's) 1,000 mls @ 125 mls/hr IV .Q8H [facility] Last Admin: 03/26/18 01:00 Dose: 125 mls/hr Ondansetron HCl (Zofran Inj) 4 mg IVP Q4 PRN PRN Reason: Nausea/Vomiting Oxycodone/Acetaminophen (Percocet 5/325 Mg Tab) 1 tab PO Q4H PRN PRN Reason: Pain, moderate (4-7) Stop: 03/27/18 17:47 Last Admin: 03/24/18 20:00 Dose: 1 tab Oxycodone/Acetaminophen (Percocet 5/325 Mg Tab) 2 tab PO Q4H PRN PRN Reason: Pain, severe (8-10) Stop: 03/27/18 17:47 Pneumococcal Polyvalent Vaccine (Pneumovax 23 Vaccine) 0.5 ml IM .ONCE ONE Stop: 03/26/18 10:01 - Labs Labs: 03/26/18 08:08 03/25/18 16:58 PT 11.6 SECONDS (9.7-12.2) 03/23/18 08:58 INR 1.1 03/23/18 08:58 APTT 34 SECONDS (21-34) 03/23/18 08:58 - Additional Findings Additional findings: - Constitutional Appears: Non-toxic, No Acute Distress - Head Exam Head Exam: ATRAUMATIC, NORMAL INSPECTION - Eye Exam Eye Exam: EOMI. absent: Scleral icterus Pupil Exam: PERRL - ENT Exam ENT Exam: Mucous Membranes Moist - Neck Exam Neck Exam: Full ROM - Respiratory Exam Respiratory Exam: Clear to Ausculation Bilateral, NORMAL BREATHING PATTERN - Cardiovascular Exam Cardiovascular Exam: REGULAR RHYTHM, +S1, +S2 - GI/Abdominal Exam GI & Abdominal Exam: Soft, Normal Bowel Sounds Surgical site dressing dry, clean and intact, no active drainage or bleeding - Extremities Exam Extremities Exam: Normal Inspection. absent: Pedal Edema, Tenderness - Back Exam Back Exam: absent: CVA tenderness (L), CVA tenderness (R) - Neurological Exam Neurological Exam: Alert, Awake, Oriented x3 - Psychiatric Exam Psychiatric exam: Normal Affect, Normal Mood - Skin Skin Exam: Normal Color, Warm Assessment and Plan - Assessment and Plan (Free Text) Plan: Biliary colic S/p laparoscopic cholecystectomy POD #2 Admit to med/surg Afebrile; No Leukocytosis RUQ US (03/24/18): Cholelithiasis. Probable adenomyomatosis of the gallbladder. Fatty infiltration of the liver. Mild hepatomegaly. No biliary obstruction. No evidence of cholecystitis. Dr. Ferrell, Gen [employer] identity management consultant - heart healthy diet - Percocet for pain Percocet 5/325mg PO Q4H PRN 1 tab moderate, 2 tab severe LR @ 125cc/hr Zofran 4mg IV Q4H PRN Received Cipro/Flagyl x 1 on 03/25 Transaminitis/Elevated T bili AST/ALT: 268/456 (395/468 yesterday); T bili 6.3 (7 yesterday) HIDA scan shows obstruction of the common hepatic or proximal common bile duct or hepatic biliary stasis F/u CMP, MRCP Prophylaxis SCDs GI not indicated VTE at surgical discretion Colace 100mg PO BID Case discussed with Dr. Santana All management per Dr. Santana
[2018-03-26] MEDS ORDERED: Pneumococcal 23-Valent Vaccine IM ONE (10:00)
--- NOTE | 2018-03-26 10:53 | CP.PCM.PN ---
Subjective - Date & Time of Evaluation Date of Evaluation: 03/26/18 Time of Evaluation: 07:00 - Subjective Subjective: Surgery: Dr. Ferrell patient feeling well today. He denies abdominal pain, n/v/f/c. He ahs been OOB ambulating. Objective - Vital Signs/Intake and Output Vital Signs (last 24 hours): Temp Pulse Resp BP Pulse Ox 97.8 F 72 20 126/76 95 03/26/18 07:00 03/26/18 07:00 03/26/18 07:00 03/26/18 07:00 03/26/18 07:00 Intake and Output: 03/26/18 03/26/18 06:59 18:59 Intake Total 1900 Output Total 1251 Balance 649 - Medications Medications: Current Medications Acetaminophen (Tylenol 325mg Tab) 650 mg PO Q6 PRN PRN Reason: Fever >100.4 F Docusate Sodium (Colace) 100 mg PO BID [facility] Last Admin: 03/26/18 09:29 Dose: Not Given Lactated Ringer's (Lactated Ringer's) 1,000 mls @ 125 mls/hr IV .Q8H [facility] Last Admin: 03/26/18 09:28 Dose: 125 mls/hr Ondansetron HCl (Zofran Inj) 4 mg IVP Q4 PRN PRN Reason: Nausea/Vomiting Oxycodone/Acetaminophen (Percocet 5/325 Mg Tab) 1 tab PO Q4H PRN PRN Reason: Pain, moderate (4-7) Stop: 03/27/18 17:47 Last Admin: 03/24/18 20:00 Dose: 1 tab Oxycodone/Acetaminophen (Percocet 5/325 Mg Tab) 2 tab PO Q4H PRN PRN Reason: Pain, severe (8-10) Stop: 03/27/18 17:47 - Labs Labs: 03/26/18 08:08 03/26/18 08:08 PT 11.6 SECONDS (9.7-12.2) 03/23/18 08:58 INR 1.1 03/23/18 08:58 APTT 34 SECONDS (21-34) 03/23/18 08:58 - Constitutional Appears: Non-toxic, No Acute Distress - Head Exam Head Exam: ATRAUMATIC, NORMOCEPHALIC - Eye Exam Eye Exam: EOMI, Normal appearance - ENT Exam ENT Exam: Mucous Membranes Moist - Respiratory Exam Respiratory Exam: NORMAL BREATHING PATTERN. absent: Respiratory Distress - Cardiovascular Exam Cardiovascular Exam: REGULAR RHYTHM. absent: Tachycardia - GI/Abdominal Exam GI & Abdominal Exam: Soft. absent: Distended, Guarding, Rigid, Tenderness, Rebound Additional comments: dressings CDI - Neurological Exam Neurological Exam: Alert, Awake, Oriented x3 - Psychiatric Exam Psychiatric exam: Normal Affect, Normal Mood - Skin Skin Exam: Dry, Normal Color, Warm Assessment and Plan - Assessment and Plan (Free Text) Assessment: 57 y/o male s/p lap dontrell POD2 with transaminitis Plan: -cont current care -enzymes trending down -further imaging today with delayed HIDA imaging vs MRCP -repeat CMP in am -further recs per Dr. Ferrell [facility] PGY3
--- NOTE | 2018-03-26 14:04 | MRI ---
PROCEDURE: Magnetic Resonance Cholangiopancreatography HISTORY: COMPARISON: None available. TECHNIQUE: Multiplanar, multisequence MR images of the abdomen were obtained, including heavily T2 weighted MRCP images of the biliary system. Rotating maximum intensity projection images of the biliary system were generated. FINDINGS: MRCP: The common bile duct is of a normal caliber. No evidence of choledocholithiasis. No intrahepatic biliary ductal dilatation. LIVER: Normal size, contour and signal intensity. No mass. GALLBLADDER: Status post cholecystectomy. Small fluid collection seen in the gallbladder fossa, nonspecific. Consistent with recent cholecystectomy. SPLEEN: Unremarkable. PANCREAS: Unremarkable. ADRENALS: Unremarkable. KIDNEYS: Right lower pole renal cortical cyst, 2.1 cm diameter AORTA: No aneurysm. ASCITES: None. OTHER FINDINGS: None. IMPRESSION: Small postoperative fluid collection in gallbladder fossa, status post cholecystectomy. No evidence of intra or extrahepatic biliary obstruction. Otherwise unremarkable.
[2018-03-26 16:03] VITALS: BP 134/74; PULSE 84; TEMP 98.8
--- NOTE | 2018-03-26 16:30 | CP.PCM.PN ---
Subjective - Date & Time of Evaluation Date of Evaluation: 03/26/18 Time of Evaluation: 07:00 - Subjective Subjective: clinically same Objective - Vital Signs/Intake and Output Vital Signs (last 24 hours): Temp Pulse Resp BP Pulse Ox 98.8 F 84 20 134/74 95 03/26/18 15:00 03/26/18 15:00 03/26/18 15:00 03/26/18 15:00 03/26/18 15:00 Intake and Output: 03/26/18 03/26/18 06:59 18:59 Intake Total 1900 Output Total 1251 Balance 649 - Medications Medications: Current Medications Acetaminophen (Tylenol 325mg Tab) 650 mg PO Q6 PRN PRN Reason: Fever >100.4 F Docusate Sodium (Colace) 100 mg PO BID [facility] Last Admin: 03/26/18 09:29 Dose: Not Given Lactated Ringer's (Lactated Ringer's) 1,000 mls @ 125 mls/hr IV .Q8H [facility] Last Admin: 03/26/18 09:28 Dose: 125 mls/hr Ondansetron HCl (Zofran Inj) 4 mg IVP Q4 PRN PRN Reason: Nausea/Vomiting Oxycodone/Acetaminophen (Percocet 5/325 Mg Tab) 1 tab PO Q4H PRN PRN Reason: Pain, moderate (4-7) Stop: 03/27/18 17:47 Last Admin: 03/24/18 20:00 Dose: 1 tab Oxycodone/Acetaminophen (Percocet 5/325 Mg Tab) 2 tab PO Q4H PRN PRN Reason: Pain, severe (8-10) Stop: 03/27/18 17:47 - Labs Labs: 03/26/18 08:08 03/26/18 08:08 PT 11.6 SECONDS (9.7-12.2) 03/23/18 08:58 INR 1.1 03/23/18 08:58 APTT 34 SECONDS (21-34) 03/23/18 08:58 - Constitutional Appears: Well - Head Exam Head Exam: ATRAUMATIC, NORMAL INSPECTION, NORMOCEPHALIC - Eye Exam Eye Exam: EOMI, Normal appearance, PERRL Pupil Exam: NORMAL ACCOMODATION, PERRL - ENT Exam ENT Exam: Mucous Membranes Moist, Normal Exam - Neck Exam Neck Exam: Full ROM, Normal Inspection. absent: Lymphadenopathy - Respiratory Exam Respiratory Exam: Decreased Breath Sounds - Cardiovascular Exam Cardiovascular Exam: REGULAR RHYTHM, +S1, +S2 - GI/Abdominal Exam GI & Abdominal Exam: Soft, Diminished Bowel Sounds - Rectal Exam Rectal Exam: Deferred Assessment and Plan (1) Epigastric pain Status: Acute
--- NOTE | 2018-03-26 17:22 | CARD ---
APPROVED REPORT EKG Measurement Heart [id number] <Conclusion> Sinus bradycardia Nonspecific ST abnormality Abnormal ECG
== END 2018-03-26 18:46 | disposition home or self-care (01) | DRG 419 ==
LOC: C.ER 08:10 → C.3T 14:04 → OBSVTOIN 03-25 17:09
PROVIDERS: ADMIT Internal Medicine Nephrology; ATTEND Internal Medicine Nephrology
PROC: 0FT44ZZ Resection of Gallbladder, Percutaneous Endoscopic Approach (ICD-10-PCS; principal; 2018-03-24 13:30)
DX: K80.10 Calculus of gallbladder with chronic cholecystitis without obstruction (principal); K76.0 Fatty (change of) liver, not elsewhere classified